=== PATIENT | male | born 1960 | race Hispanic/Latino ===

== ENCOUNTER 2022-08-20 09:34 | Emergency (ER) | payer SELFPAY | END 2022-08-20 11:02 | disposition home or self-care (01) | LOC: ERS 09:34 | DX: B02.9 Zoster without complications (principal) | CPT/HCPCS: 99282 ==

== ENCOUNTER 2022-08-22 10:22 | Emergency (ER) | payer SELFPAY ==
[2022-08-22] MEDS ORDERED: Ibuprofen 200 MG TAB ONE (12:40)
[2022-08-22] MEDS ORDERED: Acetaminophen 500 MG TAB ONE (12:40)
[2022-08-22] MEDS ORDERED: Oxymetazoline HCl 0.05% (30 ML BOT) ONE (12:40)
== END 2022-08-22 12:47 | disposition home or self-care (01) ==
LOC: ERS 10:22
DX: B02.9 Zoster without complications (principal); R09.81 Nasal congestion; Z20.822 Contact with and (suspected) exposure to COVID-19; Z79.899 Other long term (current) drug therapy
CPT/HCPCS: 87804; 99283; U0003; U0005